=== PATIENT | male | born 1985 | race Two or more races ===

== ENCOUNTER 2022-08-05 20:48 | Inpatient (IN) | payer OTHER ==
[2022-08-05 22:22] VITALS: BMI 25.7
[2022-08-05] MEDS ORDERED: BISMUTH SUBSALICYLATE 524 MG/30 ML PO PRN (22:42)
[2022-08-05] MEDS ORDERED: ACETAMINOPHEN 325 MG TABLET (FP) PO PRN (22:42)
[2022-08-05] MEDS ORDERED: BENZOCAINE/MENTHOL (CHLORASEPTIC ) LOZENGE MM PRN (22:42)
[2022-08-05] MEDS ORDERED: BENZONATATE 200 MG CAPSULE PO PRN (22:42)
[2022-08-05] MEDS ORDERED: guaiFENesin 600 MG TABLET.ER (FP) PO PRN (22:42)
[2022-08-05] MEDS ORDERED: NALOXONE HCL 0.4 MG/ML VIAL IM PRN (22:42)
[2022-08-05] MEDS ORDERED: IBUPROFEN 600 MG TABLET (FP) PO PRN (22:42)
[2022-08-05] MEDS ORDERED: NALOXONE HCL (KLOXXADO) 8 MG SPRAY NS PRN (22:42)
[2022-08-05] MEDS ORDERED: IBUPROFEN 400 MG TABLET (FP) PO PRN (22:42)
[2022-08-05] MEDS ORDERED: DICYCLOMINE HCL 10 MG CAPSULE PO PRN (22:42)
[2022-08-05] MEDS ORDERED: MAGNESIUM HYDROX 2400MG/30ML ORAL SUSPENSION 30 ML CUP PO PRN (22:42)
[2022-08-05] MEDS ORDERED: LOPERAMIDE HCL 2 MG CAPSULE PO PRN (22:42)
[2022-08-05] MEDS ORDERED: ONDANSETRON *ODT* 4 MG TABLET SL PRN (22:42)
[2022-08-05] MEDS ORDERED: MAG HYDROX/AL HYDROX/SIMETH 30 ML UNIT-DOSE CUP PO PRN (22:42)
[2022-08-05] MEDS ORDERED: POLYETHYLENE GLYCOL (HEALTHYLAX) 3350 17 GM PACKET PO PRN (22:42)
[2022-08-05] MEDS: hydrOXYzine PAMOATE 25 MG CAPSULE (FP) PO PRN (23:17)
[2022-08-05] MEDS ORDERED: hydrOXYzine PAMOATE 25 MG CAPSULE (FP) PO ONE (23:18)
[2022-08-06 02:52] LABS: PH,URINE 6.5 (5.0-8.0); URINE APPEARANCE CLEAR; URINE BILIRUBIN NEGATIVE (NEGATIVE); URINE COLOR YELLOW; URINE GLUCOSE (UA) NEGATIVE (NEGATIVE); URINE KETONE NEGATIVE (NEGATIVE); URINE LEUK ESTERASE NEGATIVE (NEGATIVE); URINE NITRITE NEGATIVE (NEGATIVE); URINE PROTEIN NEGATIVE (NEGATIVE); URINE UROBILINOGEN 0.2 mg/dL (0.2-1.0)
[2022-08-06] MEDS ORDERED: methaDONE HCL 10 MG TABLET PO SCH (09:45)
[2022-08-06] MEDS: PRENATAL VITAMINS W/ FOLIC ACID TABLET (FP) PO SCH (10:14)
[2022-08-06 11:33] LABS: HEMATOCRIT 35.6 % (35.4-49); HEMOGLOBIN 11.9 GM/dL (11.7-16.9); MCH 29.1 pg (25.7-33.7); MCHC 33.3 g/dl (32.0-35.9); MEAN CELL VOLUME 87.3 fl (80-96); MEAN PLT VOLUME 8.5 fl (7.5-11.1); PLATELET COUNT 240 10^3/uL (134-434); RBC 4.08 M/mm3 (4.00-5.60); RDW 17.4 % (11.9-15.9); WHITE BLOOD COUNT 6.4 K/mm3 (4.0-10.0)
[2022-08-06] MEDS ORDERED: cloNIDine HCL 0.1 MG TABLET PO PRN (12:20)
[2022-08-06 13:28] LABS: POTASSIUM 4.1 mmol/L (3.5-5.1)
[2022-08-06 13:31] LABS: CALCIUM 8.8 mg/dL (8.5-10.1)
[2022-08-06 13:32] LABS: ALBUMIN 3.1 g/dl (3.4-5.0); BLOOD UREA NITROGEN 12.3 mg/dL (7-18)
[2022-08-06 13:35] LABS: CREATININE 0.8 mg/dL (0.55-1.3)
[2022-08-06 13:37] LABS: BILIRUBIN,TOTAL 0.4 mg/dL (0.2-1); TOT PROT 7.1 g/dl (6.4-8.2)
[2022-08-06 14:35] LABS: HIV INTERPRETATION NEGATIVE (NEGATIVE)
[2022-08-06] MEDS: THIAMINE HCL 100 MG TABLET (FP) PO SCH (22:12)
[2022-08-06] MEDS: MELATONIN 5 MG TABLETS PO SCH (22:12)
[2022-08-06] MEDS: METHOCARBAMOL 500 MG TABLET PO PRN (22:12)
[2022-08-07] MEDS: METHOCARBAMOL 500 MG TABLET PO PRN ×2 (09:51→22:09)
[2022-08-07] MEDS: PRENATAL VITAMINS W/ FOLIC ACID TABLET (FP) PO SCH (09:51)
[2022-08-07] MEDS: hydrOXYzine PAMOATE 25 MG CAPSULE (FP) PO PRN (09:51)
[2022-08-07] MEDS: MELATONIN 5 MG TABLETS PO SCH (22:07)
[2022-08-07] MEDS: diazePAM 5 MG TABLET PO PRN (22:08)
[2022-08-07] MEDS: THIAMINE HCL 100 MG TABLET (FP) PO SCH (22:09)
[2022-08-08] MEDS ORDERED: methaDONE HCL 10 MG TABLET (FOR DETOX USE ONLY) PO ONE (10:00)
[2022-08-08] MEDS: diazePAM 5 MG TABLET PO PRN ×2 (10:03→22:09)
[2022-08-08] MEDS: PRENATAL VITAMINS W/ FOLIC ACID TABLET (FP) PO SCH (10:04)
[2022-08-08] MEDS: MELATONIN 5 MG TABLETS PO SCH (22:09)
[2022-08-08] MEDS: THIAMINE HCL 100 MG TABLET (FP) PO SCH (22:09)
[2022-08-09] MEDS: METHOCARBAMOL 500 MG TABLET PO PRN ×2 (10:27→22:16)
[2022-08-09] MEDS: diazePAM 5 MG TABLET PO PRN ×2 (10:27→22:16)
[2022-08-09] MEDS: PRENATAL VITAMINS W/ FOLIC ACID TABLET (FP) PO SCH (10:27)
[2022-08-09] MEDS: MELATONIN 5 MG TABLETS PO SCH (22:16)
[2022-08-09] MEDS: THIAMINE HCL 100 MG TABLET (FP) PO SCH (22:17)
[2022-08-10] MEDS: PRENATAL VITAMINS W/ FOLIC ACID TABLET (FP) PO SCH (09:49)
[2022-08-10] MEDS: diazePAM 5 MG TABLET PO PRN ×2 (09:52→18:07)
[2022-08-10] MEDS ORDERED: methaDONE HCL 10 MG TABLET (FOR DETOX USE ONLY) PO ONE (10:00)
[2022-08-10] MEDS: METHOCARBAMOL 500 MG TABLET PO PRN (18:08)
[2022-08-10] MEDS ORDERED: NICOTINE 10 MG CARTRIDGE (INHALER) IH PRN (20:21)
[2022-08-10] MEDS: hydrOXYzine PAMOATE 25 MG CAPSULE (FP) PO PRN (20:52)
[2022-08-10] MEDS: THIAMINE HCL 100 MG TABLET (FP) PO SCH (21:17)
[2022-08-10] MEDS: MELATONIN 5 MG TABLETS PO SCH (21:17)
[2022-08-11] MEDS: METHOCARBAMOL 500 MG TABLET PO PRN (05:50)
[2022-08-11] MEDS: diazePAM 5 MG TABLET PO PRN (05:51)
[2022-08-11 09:51] VITALS: RESP 18; TEMP 97.7
[2022-08-11] MEDS: PRENATAL VITAMINS W/ FOLIC ACID TABLET (FP) PO SCH (10:21)
[2022-08-11 12:52] VITALS: BP 113/68; PULSE 80
== END 2022-08-11 13:35 | disposition home or self-care (01) | DRG 773 ==
LOC: YASAS 20:48 → Y3N 23:48 → UNDOADMIN 23:48
PROVIDERS: ADMIT Allergy & Immunology; ATTEND Surgery
PROC: HZ2ZZZZ Detoxification Services for Substance Abuse Treatment (ICD-10-PCS; principal; 2022-08-05)
DX: F11.20 Opioid dependence, uncomplicated (principal); F10.20 Alcohol dependence, uncomplicated; F13.20 Sedative, hypnotic or anxiolytic dependence, uncomplicated; F17.210 Nicotine dependence, cigarettes, uncomplicated; F19.24 Other psychoactive substance dependence with psychoactive substance-induced mood disorder; Z87.891 Personal history of nicotine dependence
CPT/HCPCS: 36415; 80053; 81003; 82962; 85027; 86780; 87389; 87635; 93005; 93010

== ENCOUNTER 2022-08-11 13:47 | Inpatient (IN) | payer OTHER ==
[2022-08-11 14:58] VITALS: RESP 18
[2022-08-11] MEDS ORDERED: MAG HYDROX/AL HYDROX/SIMETH 30 ML UNIT-DOSE CUP PO PRN (15:17)
[2022-08-11] MEDS ORDERED: LOPERAMIDE HCL 2 MG CAPSULE PO PRN (15:17)
[2022-08-11] MEDS ORDERED: guaiFENesin 600 MG TABLET.ER (FP) PO PRN (15:17)
[2022-08-11] MEDS ORDERED: AMMONIUM LACTATE 12% LOTION 225 GM BOTTLE TP PRN (15:17)
[2022-08-11] MEDS ORDERED: BENZOCAINE/MENTHOL (CHLORASEPTIC ) LOZENGE MM PRN (15:17)
[2022-08-11] MEDS ORDERED: BENZONATATE 200 MG CAPSULE PO PRN (15:17)
[2022-08-11] MEDS ORDERED: POLYETHYLENE GLYCOL (HEALTHYLAX) 3350 17 GM PACKET PO PRN (15:17)
[2022-08-11] MEDS ORDERED: MAGNESIUM HYDROX 2400MG/30ML ORAL SUSPENSION 30 ML CUP PO PRN (15:17)
[2022-08-11] MEDS ORDERED: COLLOIDAL OATMEAL 1 BAR EACH TP PRN (15:17)
[2022-08-11] MEDS ORDERED: ACETAMINOPHEN 325 MG TABLET (FP) PO PRN (15:17)
[2022-08-11] MEDS ORDERED: NALOXONE HCL 0.4 MG/ML VIAL IVPUSH PRN (15:17)
[2022-08-11] MEDS ORDERED: NICOTINE 10 MG CARTRIDGE (INHALER) IH PRN (15:17)
[2022-08-11] MEDS ORDERED: IBUPROFEN 400 MG TABLET (FP) PO PRN (15:17)
[2022-08-11] MEDS ORDERED: NALOXONE HCL (KLOXXADO) 8 MG SPRAY NS PRN (15:17)
[2022-08-11] MEDS: THIAMINE HCL 100 MG TABLET (FP) PO SCH (21:42)
[2022-08-11] MEDS: NICOTINE POLACRILEX 4 MG GUM BUC PRN (21:46)
[2022-08-11] MEDS ORDERED: MELATONIN 5 MG TABLETS PO SCH (22:00)
[2022-08-12] MEDS: hydrOXYzine PAMOATE 25 MG CAPSULE (FP) PO PRN ×3 (06:54→21:08)
[2022-08-12] MEDS: METHOCARBAMOL 500 MG TABLET PO PRN ×2 (06:56→22:26)
[2022-08-12] MEDS ORDERED: DICYCLOMINE HCL 10 MG CAPSULE PO PRN (10:08)
[2022-08-12] MEDS: PRENATAL VITAMINS W/ FOLIC ACID TABLET (FP) PO SCH (10:10)
[2022-08-12] MEDS: cloNIDine HCL 0.1 MG TABLET PO PRN (11:06)
[2022-08-12] MEDS: THIAMINE HCL 100 MG TABLET (FP) PO SCH (21:07)
[2022-08-12] MEDS ORDERED: SUVOREXANT 10 MG TABLET PO PRN (22:00)
[2022-08-13] MEDS: cloNIDine HCL 0.1 MG TABLET PO PRN ×2 (01:37→11:36)
[2022-08-13] MEDS: METHOCARBAMOL 500 MG TABLET PO PRN ×3 (05:59→21:26)
[2022-08-13] MEDS: hydrOXYzine PAMOATE 25 MG CAPSULE (FP) PO PRN ×4 (05:59→21:25)
[2022-08-13] MEDS: IBUPROFEN 600 MG TABLET (FP) PO PRN (08:05)
[2022-08-13] MEDS: PRENATAL VITAMINS W/ FOLIC ACID TABLET (FP) PO SCH (10:56)
[2022-08-13] MEDS ORDERED: cloNIDine HCL 0.1 MG TABLET PO PRN (12:15)
[2022-08-13] MEDS: NICOTINE POLACRILEX 4 MG GUM BUC PRN (19:07)
[2022-08-13] MEDS: THIAMINE HCL 100 MG TABLET (FP) PO SCH (21:24)
[2022-08-13] MEDS ORDERED: SUVOREXANT 15 MG TABLET PO PRN (22:00)
[2022-08-13] MEDS ORDERED: cloNIDine HCL 0.1 MG TABLET PO SCH (22:00)
[2022-08-14] MEDS: hydrOXYzine PAMOATE 25 MG CAPSULE (FP) PO PRN ×2 (01:25→06:24)
[2022-08-14] MEDS ORDERED: hydrOXYzine PAMOATE 25 MG CAPSULE (FP) PO ONE (02:23)
[2022-08-14] MEDS: METHOCARBAMOL 500 MG TABLET PO PRN (03:14)
[2022-08-14] MEDS: IBUPROFEN 600 MG TABLET (FP) PO PRN (06:25)
[2022-08-14 07:03] VITALS: BP 103/69; PULSE 81; TEMP 97.1
== END 2022-08-14 07:32 | disposition left against medical advice (07) | DRG 770 ==
LOC: YASAS 13:47 → Y3W 13:51
PROVIDERS: ADMIT Allergy & Immunology; ATTEND Psychiatry & Neurology Pain Medicine
PROC: HZ42ZZZ Group Counseling for Substance Abuse Treatment, Cognitive-Behavioral (ICD-10-PCS; principal; 2022-08-10)
DX: F13.20 Sedative, hypnotic or anxiolytic dependence, uncomplicated (principal); F11.20 Opioid dependence, uncomplicated; F10.10 Alcohol abuse, uncomplicated; F14.10 Cocaine abuse, uncomplicated; F19.282 Other psychoactive substance dependence with psychoactive substance-induced sleep disorder; F41.9 Anxiety disorder, unspecified; Z87.891 Personal history of nicotine dependence